=== PATIENT | female | born 1960 | race Caucasian/White ===

== ENCOUNTER 2018-05-27 05:28 | Day surgery (SDC) | payer OTHER ==
[2018-05-27] MEDS ORDERED: ceFAZolin 2 GM/DEXTROSE 100 ML IV ONE (05:56)
[2018-05-27] MEDS ORDERED: NS 1,000 ML IV ONE (05:57)
[2018-05-27] MEDS ORDERED: LIDOCAINE 1% 2 ML INJ ID PRN (05:57)
[2018-05-27 06:52] LABS: PLATELET COUNT 150 10^3/uL (150-400)
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
[2018-05-27] MEDS ORDERED: MIDAZOLAM 2 MG/2 ML VIAL IVP ONE (06:58)
[2018-05-27 07:01] LABS: INR 0.93 (0.83-1.16); PROTIME(PATIENT) 12.7 SEC (12.0-15.0)
[2018-05-27] MEDS ORDERED: fentaNYL 100 MCG/2 ML INJ ONE (07:09)
[2018-05-27] MEDS ORDERED: PROPOFOL 200 MG/20 ML VIAL ONE (07:09)
[2018-05-27] MEDS ORDERED: LIDOCAINE 2% 100 MG/5 ML SYR ONE (07:09)
[2018-05-27] MEDS ORDERED: THROMBIN (BOVINE) 5,000 UNIT VIAL TP ONE (07:15)
[2018-05-27] MEDS ORDERED: THROMBIN (BOVINE) 20,000 UNIT SPRAY TP ONE (07:15)
[2018-05-27] MEDS ORDERED: PROTAMINE SULFATE 50 MG/5 ML VIAL IVP ONE (07:15)
[2018-05-27] MEDS ORDERED: BUPIVACAINE 0.5% 30 ML SDV ONE (07:16)
[2018-05-27] MEDS ORDERED: PAPAVERINE HCL 60 MG/2 ML SDV ONE (07:16)
--- NOTE | 2018-05-27 07:20 | PDHPUP ---
History & Physical Update H&P update statement: This history and physical update is based on an assessment of the patient which was completed after admission or registration (within 24 hours), but prior to the surgery/procedure. H&P update: H&P reviewed & patient examined, no change in patient's condition since H&P completed
[2018-05-27] MEDS ORDERED: ONDANSETRON 4 MG/2 ML VIAL ONE (08:56)
[2018-05-27] MEDS ORDERED: DEXAMETHASONE 4 MG/ML VIAL ONE (08:56)
[2018-05-27] MEDS ORDERED: fentaNYL 100 MCG/2 ML INJ IVP PRN (09:19)
[2018-05-27] MEDS ORDERED: PROMETHAZINE HCL 25 MG/ML INJ IVP PRN (09:19)
[2018-05-27] MEDS ORDERED: NALOXONE HCL 0.4 MG/ML INJ IVP PRN (09:19)
[2018-05-27] MEDS ORDERED: oxyCODONE IR 5 MG TAB PO PRN (09:19)
[2018-05-27] MEDS ORDERED: ONDANSETRON 4 MG/2 ML VIAL IVP PRN (09:19)
[2018-05-27] MEDS ORDERED: HYDROCODONE/APAP 5/325 TAB PO PRN (09:19)
[2018-05-27] MEDS ORDERED: ACETAMINOPHEN 500 MG TAB PO PRN (09:19)
--- NOTE | 2018-05-27 09:22 | POSTANESTH ---
Post Anesthetic Evaluation Cardiovascular Status: Normal, Stable, Similar to Pre-Op Cond Respiratory Status: Normal, Stable, Similar to Pre-op Cond. Level of Consciousness/Mental Status: Can Participate in Eval, Alert and Oriented Pain Control: Adequate, Prn Tx Ordered Nausea/Vomiting Control: Adequate, Prn Tx Ordered Complications Possibly Related to Anesthesia: None Noted
--- NOTE | 2018-05-27 09:29 | POSTOPPROG ---
Post Op Note Date of Operation: 05/27/18 Surgeon: Jose Arrieta Staple Laster: Gabby Anesthesiologist: Milly Anesthesia: GET(General Endotracheal) Pre-op Diagnosis: ESRD Post-op Diagnosis: same Indication: Same, need for dialysis access Procedure: LUE radiocephalic AVF creation Findings: Small vessels. 2mm cephalic vein, faint thrill Inf/Abcess present in the surg proc area at time of surgery?: No Depth: Superfical (Skin SQ) EBL: Minimal
[2018-05-27] MEDS ORDERED: ACETAMINOPHEN 500 MG TAB ONE (10:03)
[2018-05-27 10:06] VITALS: BP 108/71
--- NOTE | 2018-05-31 05:58 | GOP ---
DATE OF OPERATION: 05/27/2018 SURGEON: Jose Arrieta MD WATER SOFTENER INSTALLER: Meseret Pierre NP. PREOPERATIVE DIAGNOSIS: Renal failure. POSTOPERATIVE DIAGNOSIS: Renal failure. PROCEDURE PERFORMED: 1. Ultrasound vein mapping left arm. 2. Left radiocephalic arteriovenous fistula. FINDINGS: Patient was found to have an adequate cephalic vein at the wrist measuring almost 3 mm. T he cephalic vein was not much bigger above the antecubital space, and it was elected to try a radioce phalic AV fistula. Her radial artery was soft and pliable, but small. ESTIMATED BLOOD LOSS: Negligible. DESCRIPTION OF PROCEDURE: Patient was taken to the operating room. She received satisfactory genera l endotracheal anesthesia. She was placed in supine position, prepped and draped in the usual steril e fashion. Ultrasound was used to evaluate the veins in the left arm with the above-noted findings. A longitudinal incision was made over the distal volar aspect of the wrist, and the radial artery wa s dissected free from underneath the fascia and encircled with vessel loops. A 2nd counterincision w as made over the cephalic vein and was dissected down to the upper side of the thumb. It was then li gated distally and transected and rotated subcutaneously over to the radial artery. Patient was syst emically heparinized. The cephalic vein easily dilated to 3 mm. End-to-side anastomosis was made to the radial artery creating an 8 mm anastomosis. This was done with a running 6-0 Prolene suture. F low was first established through the AV fistula then back down the hand. Good capillary filling was maintained, and a distal radial pulse was present and good flow in the fistula. She tolerated the p rocedure well. Wounds were irrigated and infiltrated with 0.5%Marcaine. Heparin was reversed with p rotamine. Topical thrombin was placed in both cavities, and the wounds were closed with 3-0 Vicryl f or the subcu, 4-0 Monocryl subcuticular stitch for the skin, all layers infiltrated with 0.5% Marcain e. DISPOSITION: Taken to the recovery room in good condition. /[id number]/MODL
== END 2018-05-27 10:50 | disposition home or self-care (01) ==
LOC: FSGY 05:28
PROVIDERS: ATTEND Surgery
PROC: 031C0AF Bypass Left Radial Artery to Lower Arm Vein with Autologous Arterial Tissue, Open Approach (ICD-10-PCS; principal; 2018-05-27 07:15)
DX: N19 Unspecified kidney failure (principal)
CPT/HCPCS: J0690; J1100; J1642; J1644; J2001; J2250; J2405; J2440; J2704; J2720; J3010

== ENCOUNTER 2018-05-29 08:25 | Emergency (ER) | payer OTHER ==
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
[2018-05-29 09:47] VITALS: BP 140/90
--- NOTE | 2018-05-29 16:42 | GCON ---
DATE OF CONSULTATION: 05/29/2018 The patient presented to the emergency room due to a small amount of bleeding from one of her incisio ns. She had an AV fistula on Wednesday. She has a very superficial wound dehiscence on the volar aspec t of her arm. No signs of infection. Her hand is swollen but appropriate status post fistula. I ahumada ve asked her to see Dr. Arrieta early in the week. She may place an Allevyn over the area and does not need to change it. Call back if she has changes in sensation in her hand, concerns of infection, fe vers. /[id number]/MODL
== END 2018-05-29 09:49 | disposition home or self-care (01) ==
DX: T81.31XA Disruption of external operation (surgical) wound, not elsewhere classified, initial encounter (principal)

== ENCOUNTER 2018-06-07 10:43 | Day surgery (SDC) | payer OTHER ==
[~2018-06-07 10:43] MED LIST: HYDROCODONE/APAP 5/325 TAB PO SCH
[2018-06-07] MEDS ORDERED: ceFAZolin 2 GM/DEXTROSE 100 ML IV ONE (11:05)
[2018-06-07] MEDS ORDERED: LR 1,000 ML IV ONE ×2 (11:06→11:45)
[2018-06-07] MEDS ORDERED: NS 1,000 ML IV ONE (12:10)
[2018-06-07] MEDS ORDERED: THROMBIN (BOVINE) 5,000 UNIT VIAL TP ONE (13:50)
[2018-06-07] MEDS ORDERED: THROMBIN (BOVINE) 20,000 UNIT SPRAY TP ONE (13:50)
[2018-06-07] MEDS ORDERED: PROTAMINE SULFATE 50 MG/5 ML VIAL IVP ONE (13:50)
[2018-06-07] MEDS ORDERED: BUPIVACAINE 0.5% 30 ML SDV ONE (13:51)
[2018-06-07] MEDS ORDERED: MIDAZOLAM 2 MG/2 ML VIAL IVP ONE (14:14)
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
[2018-06-07] MEDS ORDERED: LIDOCAINE 2% 100 MG/5 ML SYR ONE (14:31)
[2018-06-07] MEDS ORDERED: ONDANSETRON 4 MG/2 ML VIAL ONE (14:31)
[2018-06-07] MEDS ORDERED: DEXAMETHASONE 4 MG/ML VIAL ONE (14:31)
[2018-06-07] MEDS ORDERED: PROPOFOL 200 MG/20 ML VIAL ONE (14:32)
[2018-06-07] MEDS ORDERED: fentaNYL 100 MCG/2 ML INJ ONE ×2 (14:32→16:41)
--- NOTE | 2018-06-07 14:39 | PDHPUP ---
History & Physical Update H&P update statement: This history and physical update is based on an assessment of the patient which was completed after admission or registration (within 24 hours), but prior to the surgery/procedure. update H&P update: no change in patient's condition since H&P completed, changes noted H&P changes: no changes
[2018-06-07] MEDS ORDERED: HEPARIN 10,000 UNIT/10 ML MDV (1,000 UNIT/ML) ONE (15:25)
[2018-06-07] MEDS: PAPAVERINE HCL 60 MG/2 ML SDV ONE ×2 (15:25→15:54)
--- NOTE | 2018-06-07 16:24 | POSTOPPROG ---
Post Op Note Date of Operation: 06/07/18 Surgeon: Jose Arrieta Floral Assistant: Abiel Bush Anesthesiologist: Dr Herrmann Anesthesia: GET(General Endotracheal) Pre-op Diagnosis: renal failure, need for access Post-op Diagnosis: same Indication: need for dialysis Procedure: left upper arm fistula Findings: good flow Inf/Abcess present in the surg proc area at time of surgery?: No Depth: Deep Incisional (Fascial) EBL: Minimal
[2018-06-07] MEDS ORDERED: ONDANSETRON 4 MG/2 ML VIAL IVP PRN (16:33)
[2018-06-07] MEDS ORDERED: MEPERIDINE 25 MG/0.5 ML AMP IVP PRN (16:33)
[2018-06-07] MEDS ORDERED: DEXAMETHASONE 4 MG/ML VIAL IVP PRN (16:33)
[2018-06-07] MEDS ORDERED: NALOXONE HCL 0.4 MG/ML INJ IVP PRN (16:33)
[2018-06-07] MEDS ORDERED: ACETAMINOPHEN 500 MG TAB PO PRN (16:33)
[2018-06-07] MEDS ORDERED: HYDROCODONE/APAP 5/325 TAB PO PRN (16:33)
[2018-06-07] MEDS ORDERED: oxyCODONE IR 5 MG TAB PO PRN (16:33)
[2018-06-07] MEDS ORDERED: HYDROmorphONE/DILAUDID 2 MG/ML INJ IVP PRN (16:33)
[2018-06-07] MEDS ORDERED: PROMETHAZINE HCL 25 MG/ML INJ IVP PRN (16:33)
--- NOTE | 2018-06-07 16:34 | POSTANESTH ---
Post Anesthetic Evaluation Cardiovascular Status: Similar to Pre-Op Cond Respiratory Status: Normal, Stable, Similar to Pre-op Cond. Level of Consciousness/Mental Status: Can Participate in Eval, Mildly Sleepy, Arousable Pain Control: Adequate, Prn Tx Ordered Nausea/Vomiting Control: Adequate, Prn Tx Ordered Complications Possibly Related to Anesthesia: None Noted
[2018-06-07] MEDS ORDERED: HYDROCODONE/APAP 5/325 TAB ONE (16:41)
[2018-06-07] MEDS: fentaNYL 100 MCG/2 ML INJ IVP PRN ×3 (16:43→17:00)
[2018-06-07] MEDS ORDERED: oxyCODONE IR 5 MG TAB ONE (16:57)
[2018-06-07 19:37] VITALS: BP 138/95
--- NOTE | 2018-06-10 05:04 | GOP ---
DATE OF OPERATION: 06/07/2018 SURGEON: Jose Arrieta MD [employer] ADMINISTRATOR: FELECIA Kaiser She was taken to the recovery room in good stable condition with a good palpable thrill. PREOPERATIVE DIAGNOSIS: Chronic renal failure and failed AV fistula. POSTOPERATIVE DIAGNOSIS: Chronic renal failure and failed AV fistula. PROCEDURE PERFORMED: Ultrasound vein mapping of the left arm. Left arm radiocephalic AV fistula. FINDINGS: The patient was found to have small veins throughout her arm. However, she had an excelle nt cephalic vein in the mid forearm and an adequate radial artery in the mid forearm approximately 4 inches below the antecubital space. DESCRIPTION OF PROCEDURE: The patient was taken to the operating room where she received satisfactor y general endotracheal anesthesia. She was placed in supine position with the left arm outstretched on arm board, prepped and draped in usual sterile fashion. The arm veins were evaluated with ultraso und. The cephalic vein appeared to be adequate at the midforearm level as well as the antecubital sp maximiliano and on up into the upper arm. The basilic vein was also adequate in size. The cephalic vein in the mid forearm was sitting relatively close and adjacent to the radial artery after bifurcation off the brachial artery. A longitudinal incision was made over the area marked for identification and di ssection extended down through subcutaneous tissue, and the cephalic vein was identified. It was cir cled with vessel loops. Dissection extended through the superficial fascia and down into the intramu scular space where the radial artery was dissected free and controlled with vessel loops. The patien t was systemically heparinized, and a [id number] anastomosis was made between the cephalic vein and the radial artery using a running 6-0 Prolene suture, creating a good 8 mm anastomosis. Flow was fi rst established up the AV fistula and then back down the hand. She maintained a good distal pulse an d good flow in the fistula. The suture line appeared to be hemostatic. Heparin was reversed with pr otamine. The wound was infiltrated with 0.5% Marcaine and closed with 3-0 Vicryl for the subcutaneou s tissue and 4-0 Monocryl subcuticular stitch for the skin. All layers were infiltrated with 0.5% Ma rcaine. Blood loss was negligible. Taken to recovery room in good condition. There were no complic ations. /[id number]/MODL
== END 2018-06-07 19:20 | disposition home or self-care (01) ==
LOC: FSGY 10:43
PROVIDERS: ATTEND Surgery
PROC: 03180ZD Bypass Left Brachial Artery to Upper Arm Vein, Open Approach (ICD-10-PCS; principal; 2018-06-07 14:00)
DX: N18.6 End stage renal disease (principal); T82.590D Other mechanical complication of surgically created arteriovenous fistula, subsequent encounter; I12.0 Hypertensive chronic kidney disease with stage 5 chronic kidney disease or end stage renal disease; N25.81 Secondary hyperparathyroidism of renal origin; F31.9 Bipolar disorder, unspecified
CPT/HCPCS: J0690; J1100; J1644; J2001; J2250; J2405; J2440; J2704; J2720; J3010